=== PATIENT | male | born 1985 ===

== ENCOUNTER 2023-03-30 12:32 | Emergency (ER) | payer OTHER ==
[~2023-03-30] VITALS: Ht 162.6 cm; Wt 85.0 kg
[2023-03-30 12:48] VITALS: TEMP 98.1
[2023-03-30 16:45] VITALS: BP 121/84; PULSE 80
== END 2023-03-30 16:19 | disposition home or self-care (01) ==
LOC: COL.ER 12:32
DX: S61.012A Laceration without foreign body of left thumb without damage to nail, initial encounter (principal); W26.0XXA Contact with knife, initial encounter; Y92.009 Unspecified place in unspecified non-institutional (private) residence as the place of occurrence of the external cause